=== PATIENT | female | born 1955 | race Caucasian/White ===

== ENCOUNTER 2016-12-06 14:02 | Outpatient (CLI) | payer OTHER ==
--- NOTE | 2016-12-06 15:18 | DIAGNOSTIC IMAGING REPORT ---
PROCEDURE: XR FOOT 3 VIEWS - RIGHT INDICATION: RIGHT ANKLE INJ TECHNIQUE: Three views. COMPARISON: None. FINDINGS: Osseous structures and joint spaces are normal. A side plate and screws are fixing the five malleolar ankle fracture. IMPRESSION: 1. Negative right foot.
--- NOTE | 2016-12-06 15:23 | DIAGNOSTIC IMAGING REPORT ---
PROCEDURE: XR ANKLE 3 OR 4 VIEWS - RIGHT INDICATION: RIGHT ANKLE INJ TECHNIQUE: Four views. COMPARISON: Left ankle 07/18/2015 FINDINGS: The bi malleolar fracture has been fixed with a side plate and nine screws. There is asymmetry of the ankle mortise. IMPRESSION: 1. Bimalleolar of fracture repair. Asymmetry of the ankle mortise.
== END 2016-12-06 23:00 ==
LOC: XR SRH 14:02
DX: S99.911D Unspecified injury of right ankle, subsequent encounter (principal); M25.371 Other instability, right ankle

== ENCOUNTER 2017-02-28 15:29 | Emergency (ER) | payer OTHER ==
--- NOTE | 2017-02-28 16:14 | ED NURSING NOTES ---
Clinical Report - Nurses [address] [place] [address] 02/28/2017 15:29 [id number] Triage time 15:32. Acuity: LEVEL 3. Chief Complaint: ABDOMINAL PAIN and NAUSEA and ("Ostomy, maybe blocked. "). Alert. No acute distress. SEPSIS SCREEN: Sepsis Screen: negative. Negative (no infection suspected/documented). SAKINA COMA SCORE: Sakina Coma Scale: 15- eyes open spontaneously (4); best verbal response- oriented x 4 (5); best motor response- obeys commands (6). --16:05 Chelsey Mchugh R.N. 15:32 02/28/17. BP: 148/68. HR: 82. RR: 20. O2 saturation: 99%. Temp: 99.3 F. Pain level now: 710. --16:05 Chelsey Mchugh R.N. 15:32 02/28/17. BP: 148/68. HR: 82. RR: 20. O2 saturation: 99%. Temp: 99.3 F. Pain level now: 710. --16:05 Chelsey Mchugh R.N. Weight: 93.8 kg stated. Height/Length: 64 inches Per Patient. BMI: 35.5. --15:35 Chelsey Mchugh R.N. Medications Atorvastatin Calcium Oral 10 mg, daily. --16:02 Chelsey Mchugh R.N. Omeprazole Oral 20 mg, daily. --16:03 Chelsey Mchugh R.N. Paxil Oral, daily. --16:03 Chelsey Mchugh R.N. VESIcare Oral, hs . --16:04 Chelsey Mchugh R.N. MiraLax Oral, daily as needed. --16:04 Chelsey Mchugh R.N. Medication/allergy information source: the patient. --16:05 Chelsey Mchugh R.N. Allergies No Known Drug Allergy. --16:04 Chelsey Mchugh R.N. History Arrived by EMS. Historian: patient. Primary physician ([facility]). This started today. Onset. (0700). She has had nausea and constipation. She has had cramping, intermittent abdominal pain (7). The pain is described as located in the right side of the abdomen, central area of the abdomen and left side of the abdomen and associated with nausea. Last oral intake by patient was breakfast today. Treatment SALES ANALYST: (mom at noon). EMS treatment SALES ANALYST verbally communicated. See EMS report. BP: 140 / 68 sitting. HR: 93. RR: 18. O2 saturation: 98 % room air. Upon arrival patient awake. PAST MEDICAL HX: Immunizations: status is unknown. The patient has had a hysterectomy. SOCIAL HX: Never smoker. Occasional alcohol use. No drug use. ABUSE ASSESSMENT: No report of abuse. FALL RISK ASSESSMENT: Fall risk assessment completed. No fall risk identified. NUTRITIONAL RISK ASSESSMENT: The nutritional risk assessment revealed no deficiencies. FUNCTIONAL ASSESSMENT: Functional assessment: no impairments noted. LEARNING NEEDS ASSESSMENT: The learning needs assessment revealed no barriers. SKIN INTEGRITY ASSESSMENT: Skin integrity risk assessment completed. No skin integrity risk identified. SAKINA COMA SCORE: [place] Coma Scale: 15- eyes open spontaneously (4); best verbal response- oriented x 4 (5); best motor response- obeys commands (6). --16:05 Chelsey Mchugh R.N. PROBLEMS: Incontinence of urine . Anal ca / colostomy . Depression. Anxiety disorder. Bowel Obstruction. --15:59 Chelsey Mchugh R.N. ADDITIONAL SURGERIES: Appendectomy. Cholecystectomy. Hysterectomy. Lt low leg. Ostomy . Ovaries . --15:59 Chelsey Mchugh R.N. Interventions ID band on patient. To room. --16:05 Chelsey Mchugh R.N. PHYSICAL ASSESSMENT To room via stretcher. Patient gowned. GENERAL / NEURO / PSYCH: Alert. Oriented X 4. Appears in pain and anxious. HEENT: Mucous membranes are pink. RESPIRATORY: Respirations not labored. CVS: Capillary refill less than 2 seconds. GI / : Abdominal tenderness in the periumbilical area, right lower quadrant, suprapubic area and left lower quadrant. SKIN: Skin is warm and dry. --16:06 Chelsey Mchugh R.N. NURSING PROGRESS NOTES Patient gowned. Head of bed elevated. Two patient identifiers checked. Call light placed in reach. Side rails up x 1. Bed placed in lowest position. Brakes of bed on. Patient ready for evaluation. --16:06 Chelsey Mchugh R.N. ( Ostomy emptied of one and half of the graduated containers of loose brown stool.). --16:08 Chelsey Mchugh R.N. Patient transported to radiology by stretcher with tech. (16:11). --16:11 Chelsey Mchugh R.N. Patient returned from radiology by stretcher with tech. --16:21 Chelsey Mchugh R.N. DISPOSITION / DISCHARGE 16:50 02/28/17. BP: 140/74. HR: 82. RR: 16. O2 saturation: 99% on room air. Temp: 99.8 F (oral). Pain level now: 310. Additional comments: abdominal pain. --19:27 Walter Patel R.N. Departure time: 1655. --19:27 Walter Patel R.N. 16:55. Condition at departure: improved. No learning barriers present. Discharge instructions provided and reviewed with the patient. Reviewed medication(s) (continue your usual prescribed medications). Reviewed referral to family practice for followup. Patient verbalized understanding. Written instructions provided. The patient was discharged by the physician. She was discharged home and unaccompanied at time of discharge. She left the Emergency Department ambulatory and via private vehicle. Patient driving. --19:29 Walter Patel R.N. Locked/Released at 02/28/2017 19:31 by Walter Patel R.N.
--- NOTE | 2017-02-28 16:14 | ED ORDER SUMMARY ---
..... Patient: LINDSAY BARBOUR OrderSheet [facility] VisitID: [id number] [place] [address] 61y, F Registration Date/Time: 02/28/2017 ORDER SHEET Weight: 93.8 kg (stated) Allergies: No Known Drug Allergy GENERAL ORDERS: Abd Series 2V Abd/1V Chest Urgent (15:43 02/28/2017 Kristian DOBBINS) (Ack 15:46 Tash) ([facility] CBC w Diff Urgent (15:43 02/28/2017 Kristian DOBBINS) (Ack 15:46 Tash) (Cancelled: Change in patient [id number] Kristian DOBBINS) CMP Urgent (15:43 02/28/2017 Kristian DOBBINS) (Ack 15:46 Tash) (Cancelled: Change in patient :09 Kristian DOBBINS) Lipase Urgent (15:43 02/28/2017 Kristian DOBBINS) (Ack 15:46 Tash) (Cancelled: Change in patient :09 Kristian DOBBINS) MEDICATION ORDERS: IV FLUIDS: IV Saline Lock (15:43 02/28/2017 Kristian DOBBINS) (Cancelled: Change in patient [id number] Puja Baxter) ORDER SHEET NOTES: [Electronically signed by Walter Patel R.N. (19:31 02/28/2017)] [Electronically signed by Teresa Vazquez MD (18:21 03/09/2017)] [Electronically locked/signed by Walter Patel R.N. (19:31 02/28/2017)]
--- NOTE | 2017-02-28 16:14 | ED ORDER SUMMARY ---
..... Patient: LINDSAY BARBOUR OrderSheet [facility] VisitID: [id number] [place] [address] 61y, F Registration Date/Time: 02/28/2017 ORDER SHEET Weight: 93.8 kg (stated) Allergies: No Known Drug Allergy GENERAL ORDERS: Abd Series 2V Abd/1V Chest Urgent (15:43 02/28/2017 Kristian DOBBINS) (Ack 15:46 Tash) (16:[facility] CBC w Diff Urgent (15:43 02/28/2017 Kristian DOBBINS) (Ack 15:46 Tash) (Cancelled: Change in patient [id number]:09 Kristian DOBBINS) CMP Urgent (15:43 02/28/2017 Kristian DOBBINS) (Ack 15:46 Tash) (Cancelled: Change in patient :09 Kristian DOBBINS) Lipase Urgent (15:43 02/28/2017 Kristian DOBBINS) (Ack 15:46 Tash) (Cancelled: Change in patient [id number] Kristian DOBBINS) MEDICATION ORDERS: IV FLUIDS: IV Saline Lock (15:43 02/28/2017 Kristian DOBBINS) (Cancelled: Change in patient [id number] Puja Baxter) ORDER SHEET NOTES: [Electronically signed by Walter Patel R.N. (19:31 02/28/2017)] [Electronically signed by Teresa Vazquez MD (18:21 03/09/2017)] [Electronically locked/signed by Walter Patel R.N. (19:31 02/28/2017)]
--- NOTE | 2017-02-28 16:14 | ED CLINICAL REPORT ---
Clinical Report - Physicians/Mid Levels [facility] [address] [place] [address] 02/28/2017 15:29 Patient: LINDSAY BARBOUR Time Seen: 15:30. Arrived- By ambulance. Historian- patient and EMS personnel. HISTORY OF PRESENT ILLNESS Chief Complaint: ABDOMINAL PAIN and CONSTIPATION. It is described as cramping and dull and it is described as generalized in location. This started today at about 0700 and is still present. At its maximum, severity described as moderate. When seen in the E.D., severity described as moderate. Modifying factors. Not worsened by anything. Not relieved by anything. No nausea, loss of appetite, vomiting or diarrhea. (Pt states that she just had a very large output into her colostomy bag, and is starting to feel better.). Similar symptoms previously: Occasionally. Recent medical care: Not recently seen/assessed. REVIEW OF SYSTEMS No constipation, black stools, hematemesis, difficulty with urination or pain with urination. No urinary frequency, fever, headache, sore throat or blurred vision. No chest pain, difficulty breathing, cough, joint pain or skin rash. No chills or back pain. All systems otherwise negative, except as recorded above. PAST HISTORY Problems: Incontinence of urine . Anal ca / colostomy . Anxiety disorder. Depression. Bowel Obstruction. Additional Surgeries: Appendectomy. Cholecystectomy. Hysterectomy. Lt low leg. Ostomy . Ovaries . Medications: MiraLax Oral, daily as needed. VESIcare Oral, hs . Paxil Oral, daily. Omeprazole Oral 20 mg, daily. Atorvastatin Calcium Oral 10 mg, daily. Allergies: No Known Drug Allergy. SOCIAL HISTORY Never smoker. Occasional alcohol use. No drug use. ADDITIONAL NOTES The nursing notes have been reviewed. PHYSICAL EXAM Vital Signs: 02/28/2017 15:32 BP: 148/68. HR: 82. RR: 20. O2 saturation: 99%. Temp: 99.3 F. Pain level now: 7/10. Have been reviewed. Appearance: Alert. Oriented X3. No acute distress. (PT appears moderately uncomfortable.). Eyes: Pupils equal, round and reactive to light. Eyes normal inspection. ENT: Nose normal. Neck: Normal inspection. CVS: Normal heart rate and rhythm. Heart sounds normal. Pulses normal. Respiratory: No respiratory distress. Breath sounds normal. Abdomen: Soft. Mild tenderness diffusely. No rebound tenderness or guarding. (PT has a colostomy site with a very full bag.). Back: Normal inspection. No CVA tenderness. Skin: Skin warm and dry. Normal skin color. No rash. Normal skin turgor. Extremities: Extremities exhibit normal ROM. No lower extremity edema. Neuro: Oriented X 3. No motor deficit. No sensory deficit. LABS, X-RAYS, AND EKG Pulse Oximetry: 02/28/2017 15:32 O2 saturation: 99%. (FIO2 - room air). Interpretation: normal. PROGRESS AND PROCEDURES Course of Care: Pt was feeling much better after passage of stool into her colostomy bag. After 30 min of observation, pt was completely asymptomatic, and there was no indication for further work-up or intervention. Patient counseled in person regarding the patient's stable condition, diagnosis and need for follow-up. Concerns were addressed. Old medical records reviewed. Disposition: Discharged. Condition: stable and improved. CLINICAL IMPRESSION Acute generalized abdominal pain, now resolved. Constipation INSTRUCTIONS Drink plenty of fluids. (Your x-ray looks good--no sign of perforation or obstruction.). Warnings: GENERAL WARNINGS: Return or contact your physician immediately if your condition worsens or changes unexpectedly, if not improving as expected, or if other problems arise. Your Current Medications: CONTINUE TAKING THE FOLLOWING MEDICATIONS: Atorvastatin Calcium Oral : 10 mg daily. MiraLax Oral : daily, prn. Omeprazole Oral : 20 mg daily. Paxil Oral : daily. VESIcare Oral : hs. Follow-up: Follow up with your doctor. Call for the next available appointment. Understanding of the discharge instructions verbalized by patient. (Electronically signed by Teresa Vazquez MD 03/09/2017 18:21)
--- NOTE | 2017-02-28 16:14 | ED NURSING NOTES ---
Clinical Report - Nurses [address] [place] [address] 02/28/2017 15:29 [id number] Triage time 15:32. Acuity: LEVEL 3. Chief Complaint: ABDOMINAL PAIN and NAUSEA and ("Ostomy, maybe blocked. "). Alert. No acute distress. SEPSIS SCREEN: Sepsis Screen: negative. Negative (no infection suspected/documented). SAKINA COMA SCORE: Sakina Coma Scale: 15- eyes open spontaneously (4); best verbal response- oriented x 4 (5); best motor response- obeys commands (6). --16:05 Chelsey Mchugh R.N. 15:32 02/28/17. BP: 148/68. HR: 82. RR: 20. O2 saturation: 99%. Temp: 99.3 F. Pain level now: 710. --16:05 Chelsey Mchugh R.N. 15:32 02/28/17. BP: 148/68. HR: 82. RR: 20. O2 saturation: 99%. Temp: 99.3 F. Pain level now: 710. --16:05 Chelsey Mchugh R.N. Weight: 93.8 kg stated. Height/Length: 64 inches Per Patient. BMI: 35.5. --15:35 Chelsey Mchugh R.N. Medications Atorvastatin Calcium Oral 10 mg, daily. --16:02 Chelsey Mchugh R.N. Omeprazole Oral 20 mg, daily. --16:03 Chelsey Mchugh R.N. Paxil Oral, daily. --16:03 Chelsey Mchugh R.N. VESIcare Oral, hs . --16:04 Chelsey Mchugh R.N. MiraLax Oral, daily as needed. --16:04 Chelsey Mchugh R.N. Medication/allergy information source: the patient. --16:05 Chelsey Mchugh R.N. Allergies No Known Drug Allergy. --16:04 Chelsey Mchugh R.N. History Arrived by EMS. Historian: patient. Primary physician ([facility]). This started today. Onset. (0700). She has had nausea and constipation. She has had cramping, intermittent abdominal pain (7). The pain is described as located in the right side of the abdomen, central area of the abdomen and left side of the abdomen and associated with nausea. Last oral intake by patient was breakfast today. Treatment TIPPLE BOSS: (mom at noon). EMS treatment TIPPLE BOSS verbally communicated. See EMS report. BP: 140 / 68 sitting. HR: 93. RR: 18. O2 saturation: 98 % room air. Upon arrival patient awake. PAST MEDICAL HX: Immunizations: status is unknown. The patient has had a hysterectomy. SOCIAL HX: Never smoker. Occasional alcohol use. No drug use. ABUSE ASSESSMENT: No report of abuse. FALL RISK ASSESSMENT: Fall risk assessment completed. No fall risk identified. NUTRITIONAL RISK ASSESSMENT: The nutritional risk assessment revealed no deficiencies. FUNCTIONAL ASSESSMENT: Functional assessment: no impairments noted. LEARNING NEEDS ASSESSMENT: The learning needs assessment revealed no barriers. SKIN INTEGRITY ASSESSMENT: Skin integrity risk assessment completed. No skin integrity risk identified. SAKINA COMA SCORE: [place] Coma Scale: 15- eyes open spontaneously (4); best verbal response- oriented x 4 (5); best motor response- obeys commands (6). --16:05 Chelsey Mchugh R.N. PROBLEMS: Incontinence of urine . Anal ca / colostomy . Depression. Anxiety disorder. Bowel Obstruction. --15:59 Chelsey Mchugh R.N. ADDITIONAL SURGERIES: Appendectomy. Cholecystectomy. Hysterectomy. Lt low leg. Ostomy . Ovaries . --15:59 Chelsey Mchugh R.N. Interventions ID band on patient. To room. --16:05 Chelsey Mchugh R.N. PHYSICAL ASSESSMENT To room via stretcher. Patient gowned. GENERAL / NEURO / PSYCH: Alert. Oriented X 4. Appears in pain and anxious. HEENT: Mucous membranes are pink. RESPIRATORY: Respirations not labored. CVS: Capillary refill less than 2 seconds. GI / : Abdominal tenderness in the periumbilical area, right lower quadrant, suprapubic area and left lower quadrant. SKIN: Skin is warm and dry. --16:06 Chelsey Mchugh R.N. NURSING PROGRESS NOTES Patient gowned. Head of bed elevated. Two patient identifiers checked. Call light placed in reach. Side rails up x 1. Bed placed in lowest position. Brakes of bed on. Patient ready for evaluation. --16:06 Chelsey Mchugh R.N. ( Ostomy emptied of one and half of the graduated containers of loose brown stool.). --16:08 Chelsey Mchugh R.N. Patient transported to radiology by stretcher with tech. (16:11). --16:11 Chelsey Mchugh R.N. Patient returned from radiology by stretcher with tech. --16:21 Chelsey Mchugh R.N. DISPOSITION / DISCHARGE 16:50 02/28/17. BP: 140/74. HR: 82. RR: 16. O2 saturation: 99% on room air. Temp: 99.8 F (oral). Pain level now: 310. Additional comments: abdominal pain. --19:27 Walter Patel R.N. Departure time: 1655. --19:27 Walter Patel R.N. 16:55. Condition at departure: improved. No learning barriers present. Discharge instructions provided and reviewed with the patient. Reviewed medication(s) (continue your usual prescribed medications). Reviewed referral to family practice for followup. Patient verbalized understanding. Written instructions provided. The patient was discharged by the physician. She was discharged home and unaccompanied at time of discharge. She left the Emergency Department ambulatory and via private vehicle. Patient driving. --19:29 Walter Patel R.N. Locked/Released at 02/28/2017 19:31 by Walter Patel R.N.
--- NOTE | 2017-02-28 16:33 | DIAGNOSTIC IMAGING REPORT ---
PROCEDURE: XR ABD SERIES 2V ABD/1V CHEST INDICATION: ABDOMINAL PAIN TECHNIQUE: AP supine and upright views with PA view chest. COMPARISON: None. FINDINGS: ABDOMEN: There are mildly distended small bowel loops with air-fluid levels throughout the (most pronounced in the right abdomen). There is moderate fluid distention of the stomach. There are surgical clips in right upper quadrant. There is no evidence of free air. There mild degenerative change of the lumbar spine. CHEST: Lungs are clear. Heart and mediastinum are normal. Thorax is normal. IMPRESSION: 1. Mildly dilated small bowel loops with multiple air-fluid levels with moderate fluid in the stomach. Findings are compatible with gastroenteritis or small bowel obstruction. 2. Surgical clips in right upper quadrant suggest prior cholecystectomy. 3. Negative chest.
--- NOTE | 2017-03-09 18:22 | ED MED RECONCILIATION SUMMARY ---
Patient: DIVINE BARBOURA Gayle Medication Reconciliation Report [facility] VisitID: [id number] [address] [place] [address] 61y, F Registration Date/Time: 02/28/2017 Weight: 93.8 kg Height/Length: 64 in. BMI: 35.5 ALLERGIES: No Known Drug Allergy The patient's Home Medications are listed below: CONTINUE TAKING THE FOLLOWING MEDICATIONS: Atorvastatin Calcium Oral 10 mg, daily MiraLax Oral, daily Omeprazole Oral 20 mg, daily Paxil Oral, daily VESIcare Oral, hs The source(s) of the original Home Medication information: patient The following Medications were given to the patient in the Emergency Department: None. The following Medications were prescribed to the patient: None.
--- NOTE | 2017-03-09 18:22 | ED MAR SUMMARY ---
..... Medication Administration Record [facility] [address] [place], [place] [id number] Patient: LINDSAY BARBOUR Visit ID: [id number] 61y, F Weight: 93.8 kg Height/Length: 64 in BMI: 35.5 ALLERGIES: No Known Drug Allergy
--- NOTE | 2017-03-09 18:22 | ED MED RECONCILIATION SUMMARY ---
Patient: DIVINE BARBOURA Gayle Medication Reconciliation Report [facility] VisitID: [id number] [address] [place] [address] 61y, F Registration Date/Time: 02/28/2017 Weight: 93.8 kg Height/Length: 64 in. BMI: 35.5 ALLERGIES: No Known Drug Allergy The patient's Home Medications are listed below: CONTINUE TAKING THE FOLLOWING MEDICATIONS: Atorvastatin Calcium Oral 10 mg, daily MiraLax Oral, daily Omeprazole Oral 20 mg, daily Paxil Oral, daily VESIcare Oral, hs The source(s) of the original Home Medication information: patient The following Medications were given to the patient in the Emergency Department: None. The following Medications were prescribed to the patient: None.
--- NOTE | 2017-03-09 18:22 | ED DISCHARGE INSTRUCTIONS ---
Patient: LINDSAY BARBOUR General Instructions [facility] VisitID: [id number] [place] [address] 61y, F Registration Date/Time: 02/28/2017 Acute generalized abdominal pain, now resolved. Constipation INSTRUCTIONS Drink plenty of fluids. (Your x-ray looks good--no sign of perforation or obstruction.). Warnings: GENERAL WARNINGS: Return or contact your physician immediately if your condition worsens or changes unexpectedly, if not improving as expected, or if other problems arise. Your Current Medications: CONTINUE TAKING THE FOLLOWING MEDICATIONS: Atorvastatin Calcium Oral : 10 mg daily. MiraLax Oral : daily, prn. Omeprazole Oral : 20 mg daily. Paxil Oral : daily. VESIcare Oral : hs. Follow-up: Follow up with your doctor. Call for the next available appointment. Understanding of the discharge instructions verbalized by patient. ADDITIONAL INFORMATION Constipation (Adult) Constipation is bowel movements that are less frequent than usual. Stools often become very hard and difficult to pass. This may lead to abdominal pain and bloating. It may also cause painful bowel movements. Constipation may be due to a diet thats low in fiber. Some medications, especially pain medications, can also cause it. Constipation may be treated with enemas, suppositories, laxatives or stool softeners. Your doctor will advise you which will work best for you. Follow the advice below to help avoid this problem in the future. Home Care Medication: Take any medicines as directed. Some laxatives are safe only for occasional use. Others can be taken on a regular basis. Talk to your doctor or pharmacist if you have questions. General Care: Prescription pain medications can cause constipation. If you are prescribed pain medications, ask the doctor whether you should also take a stool softener. A diet high in fiber with plenty of fluids helps to maintain regular, soft bowel movements. The following foods are good sources of dietary fiber: Cereals and breads: Whole grain cereal with bran, oatmeal, rolled oats, whole grain breads Fruits: All fruits (fresh and dried), raisins, prunes, apricots, berries, figs Vegetables: Any fresh vegetables, especially peas, broccoli, brussels sprouts, winter squash, green beans, cauliflower, thornton beans, carrots Other: Popcorn, brown rice Drink plenty of water when you increase the amount of fiber you eat. Follow Up with your doctor or return to this facility if symptoms do not improve in the next few days. You may require further tests or a referral to a specialist. Get Prompt Medical Attention if any of the following occur: Fever over 100.4F (38C) Failure to resume normal bowel movements Increasing abdominal or back pain Nausea or vomiting Abdominal swelling Blood in the stool Weakness, dizziness or fainting Unexpected vaginal bleeding You have been given the following additional information: Constipation (Adult) (Electronically signed by Teresa Vazquez MD 03/09/2017 18:21)
--- NOTE | 2017-03-09 18:22 | ED MAR SUMMARY ---
..... Medication Administration Record [facility] [address], [place] [id number] Patient: LINDSAY BARBOUR Visit ID: [id number] 61y, F Weight: 93.8 kg Height/Length: 64 in BMI: 35.5 ALLERGIES: No Known Drug Allergy
== END 2017-02-28 16:55 | disposition home or self-care (01) ==
LOC: ED SRH 15:29
DX: K59.00 Constipation, unspecified (principal); R10.84 Generalized abdominal pain; Z93.3 Colostomy status; Z79.899 Other long term (current) drug therapy